=== PATIENT | male | born 1985 | race Caucasian/White ===

== ENCOUNTER 2018-07-01 13:12 | Emergency (ER) | payer BC ==
--- OUTSIDE RECORDS SUMMARY | 2018-07-01 13:29 | XMS REPORT ---
:1985 External Reference #:[id number] Author Organization [facility] Address [address] [place] [address] Phone [phone] Care Team Providers Name Role Phone Aleksey Mcbride MD Care Team Information Clinic Coordinator Unavailable Aleksey Mcbride MD Primary Care Physician Unavailable Payers Type Date Identification Numbers Payment Provider Subscriber Commercial Policy Number: [id number] [place] Plan Sandy CRhonda Gallagher PayID: [id number] [address] [place] [address] Commercial Effective: 2016 Policy Number: Insurance Change Sal Gallagher [id number] Expires: 2016 PayID: [id number] Problems Description No Information Family History Date Family Member(s) Problem(s) Comments General negative for sudden cardiac Father Hypertension Father aortic aneurysm Number of Siblings Siblings: 1 First Brother Unremarkable : Paternal Grandfather due to Aneurysm aortic Leukemia (07/18/2014) of pneumonia. - 84 yo Paternal Grandmother Unremarkable Maternal Grandfather due to Lung () - 50's Cancer Maternal Grandmother trouble swallowing Social History Type Date Description Comments Marital Status Patient is single Occupation manufacturing Cigarette Use Nonsmoker ETOH Use Rare Recreational Drug Use Denies Drug Use Smoking Nonsmoker Daily Caffeine Consumes on average 1 cup of coffee per day Exercise Type/Frequency Current Exercises sporadically Allergies, Adverse Reactions, Alerts Date Description Reaction Status Severity Comments 07/18/2014 NKDA active 05/15/2008 tree nuts active Medications Medication Date Status Form Strength Qnty SIG Indications Ordering Provider Amoxicillin 06/26/ Active Tablets 875mg 14tabs 1 by mouth J02.0 Garrett TRhonda 2018 twice a Shon sahni MD Epipen 2-Brant 05/04/ Active Solution 0.3mg/0.3M 2units use as Aleksey Kim 2016 Auto-Injec L directed barrie Mcbride M.D. Fexofenadine Tablets 180mg 90tabs 1 by mouth Aleksey Kim HCL 2016 - every day Reed 06/26/ Jay 2018 Omeprazole Capsules 20mg 90caps 20 mg two Marleni 2016 - DR luba Randolph, day or 40 IVORY CARVER 2018 mg once a day No Active Unknown Medications 2013 - 2016 Immunizations CPT Code Status Date Vaccine Lot # [id number] Given 06/26/2018 Influenza Vac, Quadrivalent, Slit Virus, Im [id number] Given 07/08/2016 Influenza Vac, [place] [id number] Given 09/19/2014 DO Not Use Split Influenza Virus Vaccine [id number] Given 08/21/2012 Tdap Tetanus, W Pertussis [id number] Given 08/21/2012 DO Not Use Split Influenza Virus Vaccine [id number] Vital Signs Date Vital Result Comment 06/26/2018 BP Systolic 102 mmHg BP Diastolic 68 mmHg Heart Rate 78 /min Body Temperature 97.5 F Respiratory Rate 18 /min Weight 174.50 lb 05/04/2017 BP Systolic 122 mmHg BP Diastolic 80 mmHg Heart Rate 80 /min Body Temperature 97.7 F Respiratory Rate 16 /min Height 70.25 inches 5'10.25" Weight 186.25 lb BMI (Body Mass Index) 26.5 kg/m2 11/10/2016 BP Systolic 120 mmHg BP Diastolic 80 mmHg Heart Rate 80 /min Body Temperature 98.0 F Respiratory Rate 18 /min Height 70.25 inches 5'10.25" Weight 198.00 lb BMI (Body Mass Index) 28.2 kg/m2 12/12/2014 BP Systolic 140 mmHg BP Diastolic 90 mmHg Heart Rate 78 /min Body Temperature 97.9 F Height 70.25 inches 5'10.25" Weight 180.12 lb BMI (Body Mass Index) 25.7 kg/m2 07/18/2014 BP Systolic 120 mmHg BP Diastolic 92 mmHg Heart Rate 84 /min Body Temperature 98.0 F Height 70.25 inches 5'10.25" Weight 173.25 lb BMI (Body Mass Index) 24.7 kg/m2 01/14/2010 BP Systolic 124 mmHg BP Diastolic 70 mmHg Heart Rate 68 /min Height 70.25 inches 5'10.25" Weight 167.00 lb BMI (Body Mass Index) 23.8 kg/m2 07/14/2009 BP Systolic 110 mmHg BP Diastolic 80 mmHg Heart Rate 76 /min Body Temperature 98.2 F Weight 168.00 lb 01/01/2009 BP Systolic 120 mmHg BP Diastolic 70 mmHg Heart Rate 76 /min Body Temperature 97.1 F Height 70.25 inches 5'10.25" Weight 166.00 lb BMI (Body Mass Index) 23.6 kg/m2 05/15/2008 BP Systolic 128 mmHg BP Diastolic 88 mmHg Heart Rate 80 /min Body Temperature 98.1 F Respiratory Rate 16 /min Height 70.25 inches 5'10.25" Weight 156.00 lb BMI (Body Mass Index) 22.2 kg/m2 Right Visual Acuity Distance 20/20 Left Visual Acuity Distance 20/20 Results Test Date Test Result H/L Range Note Testosterone Free & 05/04/2017 Free Testosterone 11.3 ng/dL 4.85-19.0 1 Total ng/dl Testosterone 305 ng/dL 240-950 2 Ua - Micro (Fma) 05/04/2017 Appearance clear Color yellow Glucose, Urine (Fma/CMC/CTX) neg Bilirubin neg Ketones neg SP Grav 1.020 Blood neg PH 7.0 Protein neg Urobil 0.2 Nitrite neg Leukocytes (Fma/CMC/Centrex) neg Hyaline - /Lpf Granular - /Lpf WBC (Fma,Centrex) 0-1 RBC - Mucus (Fma/CBC/Centrex) - /Lpf Epith - /Lpf Bacteria - /Hpf Amorphous (Fma/CMC/Centrex) - /Lpf H Pylori, Igm, Igg, Iga AB 11/10/2016 H. pylori, IgG Abs <0.9 U/mL 0.0- 0.8 3, 4 H. pylori, IgA Abs <9.0 units 0.0-8.9 3, 5 H pylori, IgM Abs <9.0 units 0.0-8.9 3, 6 Ua - Micro (Fma) 11/10/2016 Appearance clear Color yellow Glucose, Urine (Fma/CMC/CTX) neg Bilirubin neg Ketones neg SP Grav 1.015 Blood neg PH 6.5 Protein neg Urobil 0.2 Nitrite neg Leukocytes (Fma/CMC/Centrex) neg Hyaline - /Lpf Granular - /Lpf WBC (Fma,Centrex) 0-1 RBC - Mucus (Fma/CBC/Centrex) - /Lpf Epith - /Lpf Bacteria - /Hpf Amorphous (Fma/CMC/Centrex) - /Lpf Crystals, Fluid (Fma/CMC/CTX) - Z#Comments - Complete Blood Count 11/10/2016 WBC 6.0 x10^3/UL 3.6-9.6 RBC 5.21 x10^6/UL 3.90-5.70 HGB 16.2 g/dL 12.1-17.2 HCT 48 % 36-50 MCV 93.0 fL 82.2-97.4 MCH 31.1 pg 27.6-33.3 MCHC 33.6 g/dL 33.0-35.5 RDW 13.5 % 11.6-13.7 PLT 207 x10^3/UL 150-400 MPV 8.1 fL 7.4-10.4 Gran # 3.9 x10^3/UL 1.5-7.2 Lymph# 1.8 x10^3/UL 0.7-4.9 [place]# 0.3 x10^3/UL 0.1-0.9 Gran % 63.9 % 42.2-75.2 Lymph % 31.0 % 20.5-51.1 [place]% 5.1 % 1.7-9.3 Comprehensive Metabolic Prof 11/10/2016 Sodium 139 mEq/L 134-149 Potassium 3.8 mEq/L 3.6-5.5 Chloride 104 mEq/L 94-112 Carbon Dioxide 27 mEq/L 21-32 Glucose 104 mg/dL 70-105 BUN 17 mg/dL 6-26 Creatinine 1.3 mg/dL 0.6-1.4 BUN/Creat Ratio 13.1 CALC 8.0-36.0 Calcium 9.2 mg/dL 8.6-10.2 Total Protein 7.5 g/dL 6.4-8.3 Albumin 4.6 g/dL 3.8-5.5 Globulin 2.9 g/dL 2.0-4.8 A/G Ratio 1.6 CALC 0.6-2.3 Alk. Phosphatase 70 U/L 22-95 Alt (SGPT) 43 U/L High 7-35 7 Ast (Sgot) 31 U/L 5-34 Total Bilirubin 0.5 mg/dL 0.2-1.3 GFR Non- >60 ml/min/1.73m^ >=60 GFR >60 ml/min/1.73m^ >=60 Laboratory test finding 11/10/2016 Amylase, Serum 50 U/L 20-105 TSH 1.31 mIU/L 0.50-6.00 Free T4 1.07 ng/dL 0.75-1.54 Comprehensive Metabolic Prof 07/18/2014 Sodium 142 mEq/L 134-149 Potassium 4.0 mEq/L 3.6-5.5 Chloride 99 mEq/L 94-112 Carbon Dioxide 26 mEq/L 21-32 Glucose 102 mg/dL 70-105 BUN 18 mg/dL 6-26 Creatinine 1.0 mg/dL 0.6-1.4 BUN/Creat Ratio 18.0 CALC 8.0-36.0 Calcium 9.6 mg/dL 8.6-10.2 Total Protein 7.4 g/dL 6.4-8.3 Albumin 4.8 g/dL 3.8-5.5 Globulin 2.6 g/dL 2.0-4.8 A/G Ratio 1.8 CALC 0.6-2.3 Alk. Phosphatase 61 U/L 22-95 Alt (SGPT) 21 U/L 7-35 Ast (Sgot) 24 U/L 5-34 Total Bilirubin 0.4 mg/dL 0.2-1.3 Laboratory test finding 07/18/2014 TSH 1.14 mIU/L 0.50-6.00 Complete Blood Count 07/18/2014 WBC 6.7 x10^3/UL 3.6-9.6 RBC 5.30 x10^6/UL 3.90-5.70 HGB 16.9 g/dL 12.1-17.2 HCT 50 % 36-50 MCV 94.0 fL 82.2-97.4 MCH 31.8 pg 27.6-33.3 MCHC 33.7 g/dL 33.0-35.5 RDW 11.7 % 11.6-13.7 PLT 208 x10^3/UL 150-400 MPV 7.6 fL 7.4-10.4 Gran # 4.9 x10^3/UL 1.5-7.2 Lymph# 1.6 x10^3/UL 0.7-4.9 [place]# 0.2 x10^3/UL 0.1-0.9 Gran % 71.5 % 42.2-75.2 Lymph % 24.1 % 20.5-51.1 [place]% 4.4 % 1.7-9.3 Laboratory test finding 01/01/2009 Free T4 0.94 ng/dL 0.75-1.54 TSH 1.23 mIU/L 0.50-6.00 Comprehensive Metabolic Prof 01/01/2009 Albumin 4.4 g/dL 3.8-5.5 Alk. Phos. 82 U/L 22-95 Alt (SGPT) 26 U/L 10-40 Ast (Sgot) 29 U/L 5-34 BUN 17 mg/dL 6-26 Calcium 9.5 mg/dL 8.6-10.2 Chloride 101 mEq/L 94-112 Creatinine 0.9 mg/dL 0.6-1.4 Carbon Dioxide 26 mEq/L 21-32 Glucose 69 mg/dL Low 70-105 8 Sodium 139 mEq/L 134-149 Total Bilirubin 0.3 mg/dL 0.2-1.3 Total Protein 7.3 g/dL 6.3-8.1 Potassium 4.5 mEq/L 3.6-5.5 Globulin 2.9 g/dL 2.0-4.8 A/G Ratio 1.5 Calc 0.6-2.2 BUN/Creat Ratio 18.3 Calc 8.0-36.0 Complete Blood Count 01/01/2009 WBC 5.8 x10^3/uL 3.6-9.6 Gran# 4.1 x10^3/uL 1.5-7.2 Gran% 70.1 % 42.2-75.2 HCT 50 % 36-50 HGB 17.1 g/dL 12.1-17.2 Lymph# 1.3 x10^3/uL 0.7-4.9 Lymph% 22.6 % 20.5-51.1 MCH 31.5 pg 27.6-33.3 MCV 91.5 fL 82.2-97.4 MCHC 34.4 g/dL 33.0-35.5 Mo# 0.4 x10^3/uL 0.1-0.9 Mo% 7.3 % 1.7-9.3 MPV 8.3 fL 7.4-10.4 PLT 220 x10^3/uL 150-400 RBC 5.42 x10^6/uL 3.90-5.70 RDW 12.3 % 11.6-13.7 Laboratory test finding 01/01/2009 Monospot (Fma/Centrex) negative 1 ADDITIONAL INFORMATION Testing performed by [facility]. This test was developed and its performance characteristics determined by [facility] in a manner consistent with CLIA requirements. This test has not been cleared or approved by the U.S. Food and Drug Administration. 2 ADDITIONAL INFORMATION Testing performed by Liquid Chromatography-Tandem Mass Spectrometry (LC-MS/MS). This test was developed and its performance characteristics determined by [facility] in a manner consistent with CLIA requirements. This test has not been cleared or approved by the U.S. Food and Drug Administration. Test Performed by: [facility] - [address] [address] 3 1 sst 4 Negative <0.9 Indeterminate 0.9 - 1.0 Positive >1.0 5 Negative <9.0 Equivocal 9.0 - 11.0 Positive >11.0 6 Negative <9.0 Equivocal 9.0 - 11.0 Positive >11.0 This test was developed and its performance characteristics determined by [employer]. It has not been cleared or approved by the Food and Drug Administration. 7 RESULTS VERIFIED BY REPEAT ANALYSIS 8 RESULT IAIN'D Procedures Date CPT Code Description Status 01/14/2010 40684 Anoscopy Diagnostic Completed Encounters Type Date Location Provider CPT E/M Dx Office Visit 05/04/2017 10:20a [facility] Office Aleksey Mcbride M.D. 28295 N46.9 Office Visit 11/10/2016 3:15p [facility] Office TRES Swenson 51288 R10.11 R10.12 R14.2 Z85.850 Office Visit 12/12/2014 10:30a [facility] Sherice Winston [facility] [address] 719.43 Office Visit 07/18/2014 2:45p [facility] [place] [address] 780.79 Office Visit 01/14/2010 2:40p [facility] Office Garrett Pride M.D. 32358 569.3 Office Visit 07/14/2009 8:30p Main Office Sherice Winston [facility] [address] 786.2 Office Visit 01/01/2009 9:45a [facility] Sherice Winston [facility] [address]87 780.79 786.2 Office Visit 05/15/2008 10:00a [facility] Alkesey Mcbride M.D. 87609 V70.0 787.91 Plan of Care 06/26/2018 - Garrett Menendez MDJ02.0 Streptococcal pharyngitisNew Medication:Amoxicillin 875 mgZ23 Encounter for immunizationAllComments:~B_~U_ Medication Management~b_~u_ Patient Understands medications he's taking? Yes No Are there Barriers to Adherence? Yes No Has the patient been asked about herbal supplements and therapies, and OTC meds? Yes No
[2018-07-01 13:50] VITALS: BP 132/86
--- NOTE | 2018-07-01 15:06 | UC ---
Throat Pain/Nasal Nadir HPI - HPI Summary HPI Summary: P presents with ST, and fatigue that began ~ 2 weeks ago. Pt was seen by PCP and given amoxicillin 875mg PO Q12h X 10. [address] reports ST has improved only a little and still c/o fatigue, malaise and ST. - History of Current Complaint Chief Complaint: UCRespiratory Stated Complaint: SORE THROAT Time Seen by Provider: 07/01/18 14:34 Hx Obtained From: Patient Onset/Duration: Sudden Onset, Lasting Days - 9, Still Present Severity: Severe Pain Intensity: 8 Cough: None Associated Signs & Symptoms: Positive: Dysphagia, Other - fatigue - Epiglottits Risk Factors Epiglottis Risk Factors: Negative - Allergies/Home Medications Allergies/Adverse Reactions: Allergies Allergy/AdvReac Type Severity Reaction Status Date / Time No Known Allergies Allergy Verified 07/01/18 13:50 Home Medications: Home Medications Amoxicillin PO (*) [Amoxicillin 875 MG (*)] 875 mg PO BID 07/01/18 [History Confirmed 07/01/18] PMH/Surg Hx/FS Hx/Imm Hx Previously Healthy: Yes - Surgical History Surgical History: Yes Surgery Procedure, Year, and Place: carpel tunnel-both wrists. ulnar nerve decompression-both arms - Family History Known Family History: Positive: Cardiac Disease - Social History Occupation: Employed Full-time Lives: With Family Alcohol Use: None Substance Use Type: None Smoking Status (MU): Never Smoked Tobacco Have You Smoked in the Last Year: No Review of Systems Constitutional: Fever, Chills, Fatigue Skin: Negative Eyes: Negative ENT: Sore Throat Respiratory: Negative Cardiovascular: Negative Gastrointestinal: Negative Genitourinary: Negative Motor: Negative Neurovascular: Negative Musculoskeletal: Myalgia Neurological: Headache Psychological: Negative Is Patient Immunocompromised?: No All Other Systems Reviewed And Are Negative: Yes Physical Exam Triage Information Reviewed: Yes Appearance: Ill-Appearing Vital Signs: Initial Vital Signs Temp 99.1 F 07/01/18 13:38 Pulse 107 07/01/18 13:38 Resp 16 07/01/18 13:38 BP 132/86 07/01/18 13:38 Pulse Ox 98 07/01/18 13:38 Vital Signs Reviewed: Yes Eye Exam: Normal ENT Exam: Other ENT: Positive: Tonsillar swelling, Tonsillar exudate Dental Exam: Normal Neck: Positive: Enlarged Nodes @ - left cervical, left submandibular Respiratory Exam: Normal Cardiovascular Exam: Normal Abdominal Exam: Normal Abdomen Description: Positive: Nontender Musculoskeletal Exam: Normal Neurological Exam: Normal Psychological Exam: Normal Skin Exam: Normal Diagnostics - Laboratory Diagnostic Studies Completed/Ordered: rapid strep: negative Throat Pain/Nasal Course/Dx - Course Course Of Treatment: I instructed pt to f/u with PCP lynne - Differential Dx/Diagnosis Differential Diagnosis/HQI/PQRI: Mononucleosis, Pharyngitis, Tonsillitis Provider Diagnoses: tonsillitis Discharge - Sign-Out/Discharge Documenting (check all that apply): Patient Departure All imaging exams completed and their final reports reviewed: No Studies - Discharge Plan Condition: Stable Disposition: HOME Patient Education Materials: Tonsillitis (ED) Referrals: Aleksey Mcbride MD [Primary Care Provider] - If Needed - Billing Disposition and Condition Condition: STABLE Disposition: Home
[2018-07-02 14:19] LABS: Hematocrit 46 % (42-52); Hemoglobin 15.3 g/dl (14.0-18.0); Mean Corpuscular HGB Conc 34 g/dl (31-36); Mean Corpuscular Hemoglobin 30 pg (27-31); Mean Corpuscular Volume 90 fL (80-94); Mean Platelet Volume 9.4 um3 (7.4-10.4); Platelet Count 169 10^3/ul (150-450); Red Blood Count 5.03 10^6/ul (4.00-5.40); Red Cell Distribution Width 13 % (10.5-15); White Blood Count 11.3 10^3/ul (3.5-10.8)
[2018-07-02 14:44] LABS: ABS Basophils 0.1 10^3/ul (0-0.2); ABS Eosinophils 0 10^3/ul (0-0.6); ABS Lymphocytes 7.1 10^3/ul (1.0-4.8); ABS Monocytes 1.1 10^3/ul (0-0.8); ABS Neutrophils 2.9 10^3/ul (1.5-7.7)
[2018-07-02 14:47] LABS: ABS Basophils 0 10^3/ul (0-0.2); ABS Neutrophils 2.8 10^3/ul (1.5-7.7); Monocytes % 5 % (0-7)
--- NOTE | 2018-07-03 07:04 | UC ---
- Progress Note Progress Note: please notify pt of his (+) test for mono no contact sports/enlarged spleen precautions see Dr. Mcbride in a few weeks if not better JLD Discharge - Sign-Out/Discharge Documenting (check all that apply): Post-Discharge Follow Up All imaging exams completed and their final reports reviewed: No Studies - Discharge Plan Condition: Stable Disposition: HOME Patient Education Materials: Tonsillitis (ED) Referrals: Aleksey Mcbride MD [Primary Care Provider] - If Needed - Billing Disposition and Condition Condition: STABLE Disposition: Home
== END 2018-07-01 15:11 | disposition home or self-care (01) ==
LOC: UCCORT 13:12
DX: J03.90 Acute tonsillitis, unspecified (principal)
CPT/HCPCS: 36415; 85025; 85060; 86308; 87651; 99211; G0463

== ENCOUNTER 2019-02-14 12:02 | Emergency (ER) | payer BC, OTHER ==
[2019-02-14 13:00] VITALS: BP 134/83
--- NOTE | 2019-02-14 13:40 | UC ---
Throat Pain/Nasal Nadir HPI - HPI Summary HPI Summary: Pt c/o sudden onset of ST, chills, body aches X 1 day. Pt has been taking OTC tylenol and ibuprofen for symptoms management but thinks that symptoms are worsening not improving. Pt has 3 small children at home and all were sick 2 weeks ago. - History of Current Complaint Chief Complaint: UCRespiratory Stated Complaint: THROAT CONCERN Time Seen by Provider: 02/14/19 13:27 Hx Obtained From: Patient Onset/Duration: Sudden Onset, Lasting Days, Still Present Severity: Moderate Pain Intensity: 7 Cough: None Associated Signs & Symptoms: Positive: Dysphagia, Hoarseness, Fever - Epiglottits Risk Factors Epiglottis Risk Factors: Negative - Allergies/Home Medications Allergies/Adverse Reactions: Allergies Allergy/AdvReac Type Severity Reaction Status Date / Time No Known Allergies Allergy Verified 02/14/19 13:00 Home Medications: Home Medications Acetaminophen [Tylophen] 1,000 mg PO ONCE PRN 02/14/19 [History Confirmed ] Ibuprofen 600 mg PO ONCE PRN 02/14/19 [History Confirmed 02/14/19] PMH/Surg Hx/FS Hx/Imm Hx - Additional Past Medical History Additional PMH: Pt had mono in 2017 Previously Healthy: Yes - Surgical History Surgical History: Yes Surgery Procedure, Year, and Place: carpel tunnel-both wrists. ulnar nerve decompression-both arms - Family History Known Family History: Positive: Cardiac Disease - Social History Occupation: Employed Full-time Lives: With Family Alcohol Use: None Substance Use Type: None Smoking Status (MU): Never Smoked Tobacco Have You Smoked in the Last Year: No - Immunization History Vaccination Up to Date: Yes Review of Systems All Other Systems Reviewed And Are Negative: Yes Constitutional: Positive: Fever - subjective, Chills, Fatigue Skin: Positive: Negative Physical Exam Triage Information Reviewed: Yes Appearance: Ill-Appearing Vital Signs: Initial Vital Signs Temp 99.3 F 02/14/19 12:58 Pulse 98 02/14/19 12:58 Resp 18 02/14/19 12:58 BP 134/83 02/14/19 12:58 Pulse Ox 100 02/14/19 12:58 Vital Signs Reviewed: Yes Eye Exam: Normal ENT: Positive: Pharyngeal erythema, Tonsillar swelling, Tonsillar exudate Dental Exam: Normal Neck exam: Normal Neck: Positive: Supple Respiratory Exam: Normal Cardiovascular Exam: Normal Musculoskeletal Exam: Normal Neurological Exam: Normal Psychological Exam: Normal Skin Exam: Normal Throat Pain/Nasal Course/Dx - Differential Dx/Diagnosis Differential Diagnosis/HQI/PQRI: Pharyngitis, Tonsillitis Provider Diagnosis: Pharyngitis Discharge - Sign-Out/Discharge Documenting (check all that apply): Patient Departure All imaging exams completed and their final reports reviewed: No Studies - Discharge Plan Condition: Stable Disposition: HOME Prescriptions: Amoxicillin PO (*) [Amoxicillin 500 MG CAP*] 500 mg PO Q12H #20 cap Patient Education Materials: Pharyngitis (ED) Referrals: Aleksey Mcbride MD [Primary Care Provider] - If Needed - Billing Disposition and Condition Condition: STABLE Disposition: Home
== END 2019-02-14 13:47 | disposition home or self-care (01) ==
LOC: UCCORT 12:02
DX: J02.9 Acute pharyngitis, unspecified (principal)
CPT/HCPCS: 87651; 99212; G0463